=== PATIENT | female | born 1935 | race Caucasian/White ===

== ENCOUNTER 2017-12-23 10:51 | Observation (INO) | payer MEDICARE ==
[~2017-12-23] VITALS: Ht 167.6 cm; Wt 82.9 kg
[2017-12-23 11:40] LABS: CREATININE 1.5 mg/dL (0.5-1.5); POTASSIUM 3.7 mmol/L (3.5-5.1)
[2017-12-23 11:43] LABS: BASOPHILS % (AUTO) 0.7 % (0.0-5.0); EOSINOPHILS % (AUTO) 1.6 % (0.0-8.0); HEMATOCRIT 29.3 % (36-48); LYMPHOCYTES % (AUTO) 14.9 % (21.0-51.0); MEAN CORPUSCULAR HEMOGLOBIN 31.5 pg (27.0-33.0); MEAN CORPUSCULAR HGB CONC 34.7 g/dL (32.0-36.0); MEAN CORPUSCULAR VOLUME 90.8 fL (79-99); MONOCYTES % (AUTO) 8.2 % (3.0-13.0); NEUTROPHILS % (AUTO) 74.6 % (40.0-77.0); PLATELET COUNT (AUTO) 153 K/uL (130-400); RED BLOOD CELL COUNT(AUTO) 3.23 MIL/uL (4.00-5.50); RED CELL DISTRIBUTION WIDTH 18.1 % (11.0-15.5); WHITE BLOOD COUNT (AUTO) 6.5 K/uL (4.8-10.8)
[2017-12-23 11:44] LABS: BILIRUBIN,TOTAL 0.6 mg/dL (0.2-1.0); TOTAL PROTEIN, SERUM 6.4 g/dL (6.0-8.3)
[2017-12-23 12:37] LABS: B-TYPE NATRIURETIC PEPTIDE 805 pg/mL (0-100)
[2017-12-23] MEDS ORDERED: ASPIRIN 81MG TAB.CHEW ONE (13:16)
[2017-12-23 18:45] VITALS: BP 146/77
[2017-12-23 20:05] VITALS: BP 148/75
[2017-12-23] MEDS ORDERED: FUROSEMIDE 10 MG/ML 4ML VIAL IV SCH (21:30)
[2017-12-23 23:43] VITALS: BP 141/79
[2017-12-24] MEDS ORDERED: POTASSIUM CHLORIDE 20MEQ/100ML 100 ML IV PRN (00:45)
[2017-12-24] MEDS ORDERED: LIDOCAINE HCL-MPF 1% 2ML VIAL IVP PRN (00:45)
[2017-12-24] MEDS ORDERED: ACETAMINOPHEN 325 MG TAB PO PRN (00:45)
[2017-12-24] MEDS ORDERED: IPRATROPIUM 0.5 MG/2.5 ML INH IH PRN (00:45)
[2017-12-24] MEDS ORDERED: POTASSIUM CHLORIDE 10% ELIXIR 20 MEQ/15 ML UDCUP PO PRN (00:45)
[2017-12-24] MEDS ORDERED: LACTULOSE 20 GM/30 ML UDCUP PO PRN (00:45)
[2017-12-24] MEDS ORDERED: HYDRALAZINE HCL 20 MG/ML VIAL IV PRN (00:45)
[2017-12-24] MEDS ORDERED: NITROGLYCERIN 0.4 MG SL TAB SL PRN (00:45)
[2017-12-24] MEDS ORDERED: ONDANSETRON HCL 4 MG/2 ML VIAL IV PRN (00:45)
[2017-12-24] MEDS ORDERED: METO50 PO (01:02)
[2017-12-24] MEDS ORDERED: PANT40TA25 PO (01:04)
[2017-12-24] MEDS ORDERED: ROSU10TA35 PO (01:04)
[2017-12-24] MEDS ORDERED: FURO40TA7 PO (01:04)
[2017-12-24 01:37] LABS: CREATINE KINASE MB 32.5 ng/mL (0.5-3.6)
[2017-12-24 01:41] LABS: TROPONIN I 24.63 ng/mL (0.00-0.06)
[2017-12-24 04:00] VITALS: BP 143/79
[2017-12-24 04:22] LABS: EOSINOPHILS % (AUTO) 2.4 % (0.0-8.0); LYMPHOCYTES % (AUTO) 20.9 % (21.0-51.0); MEAN CORPUSCULAR HEMOGLOBIN 30.7 pg (27.0-33.0); MEAN CORPUSCULAR HGB CONC 34.2 g/dL (32.0-36.0); MEAN CORPUSCULAR VOLUME 89.8 fL (79-99); NEUTROPHILS % (AUTO) 65.7 % (40.0-77.0); PLATELET COUNT (AUTO) 159 K/uL (130-400); RED BLOOD CELL COUNT(AUTO) 3.23 MIL/uL (4.00-5.50); RED CELL DISTRIBUTION WIDTH 17.9 % (11.0-15.5); WHITE BLOOD COUNT (AUTO) 6.2 K/uL (4.8-10.8)
[2017-12-24 04:34] LABS: ALBUMIN 2.8 g/dL (3.5-5.0); BILIRUBIN,TOTAL 0.7 mg/dL (0.2-1.0); CREATININE 1.5 mg/dL (0.5-1.5); POTASSIUM 3.3 mmol/L (3.5-5.1)
[2017-12-24 04:40] LABS: B-TYPE NATRIURETIC PEPTIDE 1910 pg/mL (0-100)
[2017-12-24] MEDS: POTASSIUM CHLORIDE 20 MEQ ERTAB PO PRN (06:30)
[2017-12-24 06:54] LABS: CREATINE KINASE MB 26.7 ng/mL (0.5-3.6)
[2017-12-24 06:56] LABS: TROPONIN I 25.91 ng/mL (0.00-0.06)
[2017-12-24 08:06] VITALS: BP 145/86
[2017-12-24] MEDS ORDERED: REGADENOSON 0.4 MG/5 ML PF SYG IVP SCH (10:45)
[2017-12-24] MEDS: FUROSEMIDE 10 MG/ML 4ML VIAL IVP SCH ×2 (15:25→20:16)
[2017-12-24] MEDS: FAMOTIDINE 20MG TAB 20 MG TAB PO SCH ×2 (15:25→20:16)
[2017-12-24] MEDS: METOPROLOL TARTRATE 25 MG TAB PO SCH ×2 (15:25→20:16)
[2017-12-24] MEDS: ASPIRIN 325 MG TABLET PO SCH (15:26)
[2017-12-24 16:00] VITALS: BP 138/74
[2017-12-24] MEDS: ATORVASTATIN CALCIUM 20 MG TABLET PO SCH (20:15)
[2017-12-24 20:16] VITALS: BP 137/85
[2017-12-25] VITALS (8 sets, daily range): BP systolic 124–192; BP diastolic 67–117
[2017-12-25 04:03] LABS: BASOPHILS % (AUTO) 0.8 % (0.0-5.0); EOSINOPHILS % (AUTO) 2.4 % (0.0-8.0); LYMPHOCYTES % (AUTO) 23.5 % (21.0-51.0); MEAN CORPUSCULAR HEMOGLOBIN 31.9 pg (27.0-33.0); MEAN CORPUSCULAR HGB CONC 35.1 g/dL (32.0-36.0); MEAN CORPUSCULAR VOLUME 90.9 fL (79-99); MONOCYTES % (AUTO) 12.2 % (3.0-13.0); NEUTROPHILS % (AUTO) 61.1 % (40.0-77.0); PLATELET COUNT (AUTO) 146 K/uL (130-400); RED CELL DISTRIBUTION WIDTH 17.4 % (11.0-15.5); WHITE BLOOD COUNT (AUTO) 5.7 K/uL (4.8-10.8)
[2017-12-25 04:27] LABS: CREATININE 1.6 mg/dL (0.5-1.5); POTASSIUM 3.5 mmol/L (3.5-5.1)
[2017-12-25 04:32] LABS: B-TYPE NATRIURETIC PEPTIDE 1210 pg/mL (0-100)
[2017-12-25] MEDS: ASPIRIN 325 MG TABLET PO SCH (10:04)
[2017-12-25] MEDS: FAMOTIDINE 20MG TAB 20 MG TAB PO SCH ×2 (10:04→21:24)
[2017-12-25] MEDS: METOPROLOL TARTRATE 25 MG TAB PO SCH ×2 (10:04→23:49)
[2017-12-25] MEDS: POTASSIUM CHLORIDE 20 MEQ ERTAB PO PRN (10:05)
[2017-12-25] MEDS: FUROSEMIDE 10 MG/ML 4ML VIAL IVP SCH ×2 (10:05→21:23)
[2017-12-25] MEDS ORDERED: METO100T14 PO (10:19)
[2017-12-25] MEDS ORDERED: MULT-1258 PO (10:26)
[2017-12-25] MEDS ORDERED: ASPI-1197 PO (10:28)
[2017-12-25] MEDS ORDERED: CYAN250010 PO (10:28)
[2017-12-25] MEDS: ATORVASTATIN CALCIUM 20 MG TABLET PO SCH (21:24)
[2017-12-26 03:32] LABS: BASOPHILS % (AUTO) 0.9 % (0.0-5.0); EOSINOPHILS % (AUTO) 2.8 % (0.0-8.0); HEMATOCRIT 30.2 % (36-48); LYMPHOCYTES % (AUTO) 26.3 % (21.0-51.0); MEAN CORPUSCULAR HEMOGLOBIN 30.7 pg (27.0-33.0); MEAN CORPUSCULAR VOLUME 90.2 fL (79-99); MONOCYTES % (AUTO) 11.5 % (3.0-13.0); NEUTROPHILS % (AUTO) 58.5 % (40.0-77.0); PLATELET COUNT (AUTO) 158 K/uL (130-400); RED BLOOD CELL COUNT(AUTO) 3.35 MIL/uL (4.00-5.50); RED CELL DISTRIBUTION WIDTH 17.4 % (11.0-15.5); WHITE BLOOD COUNT (AUTO) 5.2 K/uL (4.8-10.8)
[2017-12-26 03:35] VITALS: BP 137/76
[2017-12-26 03:42] LABS: CREATININE 1.6 mg/dL (0.5-1.5); POTASSIUM 3.3 mmol/L (3.5-5.1)
[2017-12-26 04:00] LABS: B-TYPE NATRIURETIC PEPTIDE 1490 pg/mL (0-100)
[2017-12-26] MEDS ORDERED: POTASSIUM CHLORIDE 10 MEQ/TAB.SA PO ONE ×4 (04:03→06:10)
[2017-12-26 07:00] VITALS: BP 151/88
[2017-12-26] MEDS: METOPROLOL TARTRATE 25 MG TAB PO SCH (08:32)
[2017-12-26] MEDS: FAMOTIDINE 20MG TAB 20 MG TAB PO SCH (08:32)
[2017-12-26] MEDS: ASPIRIN 325 MG TABLET PO SCH (08:32)
[2017-12-26] MEDS: POTASSIUM CHLORIDE 20 MEQ ERTAB PO PRN (08:32)
[2017-12-26] MEDS: FUROSEMIDE 10 MG/ML 4ML VIAL IVP SCH (08:33)
[2017-12-26] MEDS ORDERED: LISI2.5T2 PO (09:54)
== END 2017-12-26 11:06 | disposition home or self-care (01) ==
LOC: EDH 10:51 → EDHIP 14:04 → 2AH 18:52
PROVIDERS: ADMIT Family Medicine; ATTEND Family Medicine
DX: I24.9 Acute ischemic heart disease, unspecified (principal); I25.10 Atherosclerotic heart disease of native coronary artery without angina pectoris; I25.2 Old myocardial infarction; N17.9 Acute kidney failure, unspecified; I45.10 Unspecified right bundle-branch block; I44.0 Atrioventricular block, first degree; I11.0 Hypertensive heart disease with heart failure; I50.41 Acute combined systolic (congestive) and diastolic (congestive) heart failure; E78.5 Hyperlipidemia, unspecified; Z95.5 Presence of coronary angioplasty implant and graft; Z95.1 Presence of aortocoronary bypass graft
CPT/HCPCS: 36415 ×4; 71045; 78452; 80048 ×2; 80053 ×2; 80061; 82550 ×2; 82553 ×2; 83874 ×2; 83880 ×4; 84484 ×4; 85025 ×4; 93005 ×2; 93017; 93306; 94664; 96374; 96376 ×3; 99285; A9500 ×2; G0378 ×69; J0360; J1940 ×5; J2785